=== PATIENT | female | born 1985 ===

== ENCOUNTER 2022-05-23 04:08 | Inpatient (IN) ==
[2022-05-23] MEDS ORDERED: LIDOCAINE 1% LOCAL 20 ML VIAL INFIL PRN (04:34)
[2022-05-23] MEDS ORDERED: OXYTOCIN 30 UNITS/500 ML BAG IV PRN ×2 (04:34→13:35)
[2022-05-23] MEDS: LACTATED RINGER'S 1,000 ML IV PRN ×2 (04:45→09:03)
[2022-05-23 04:56] LABS: Hematocrit (blood only) 32.4 % (34.1-44.9); Hemoglobin 11.2 g/dl (12.0-16.0); Mean Corpuscular Hemoglobin 31.1 pg (25.0-34.0); Mean Corpuscular Hgb Conc 34.6 g/dL (32.0-36.0); Mean Platelet Volume 10.1 fL (9.4-12.3); Platelet Count 363 K/uL (130-400); RDW Coefficient of Variation 12.5 % (11.5-14.5); RDW Standard Deviation 41.2 fL (36.4-46.3); White Blood Count 12.72 K/ul (4.8-10.8)
[2022-05-23] MEDS ORDERED: fentaNYL citrate 100 MCG/2 ML VIAL ONE (05:04)
[2022-05-23] MEDS ORDERED: ePHEDrine sulfate 50 MG/ML AMP ONE (05:04)
[2022-05-23] MEDS ORDERED: SODIUM CHLORIDE 0.9% INJ 10 ML VIAL ONE (05:04)
[2022-05-23] MEDS ORDERED: LIDOCAINE 2%/EPINEPHRINE 1:200,000 20 ML SDV ONE (05:05)
[2022-05-23] MEDS ORDERED: fentaNYL 2MCG/ML ROPIVACAINE 1.25MG/ML 100 ML BAG EPI ONE (05:05)
[2022-05-23] MEDS ORDERED: BUPIVACAINE 0.25% 30 ML VIAL ONE (05:05)
--- NOTE | 2022-05-23 05:51 | Anesthesiology Consultation ---
Date of Service May 23, 2022 Assessment & Plan Chart Review Chart Review: Acceptable Risk for Labor Epidural Consults Requested none History Height/Weight Height: 5 ft 4 in Weight: 73.936 kg Allergies Allergy/AdvReac Type Severity Reaction Status Date / Time No Known Allergies Allergy Unverified 04/29/22 19:23 Medications Home Medications Medication Instructions Recorded Confirmed Last Taken cyanocobalamin (B12)-cobamamide harriet sublingual DAILY 04/29/22 05/22/22 13:00 5,000 mcg-100 mcg sublingual lozenge (B12) ferrous sulfate 325 mg (65 mg 325 mg PO DAILY 04/29/22 05/23/22 05/22/22 13:00 iron) tablet (iron) omeprazole magnesium 20 mg 20 mg PO DAILY 04/29/22 05/23/22 05/22/22 13:00 tablet,delayed release (Prilosec OTC) vit no.95-ferrous 1 tab PO DAILY 04/29/22 05/23/22 05/22/22 13:00 fumarate 28 mg-folic acid 800 mcg tablet () venlafaxine 75 mg tablet 75 mg PO DAILY 04/29/22 05/23/22 05/22/22 13:00 Active Medications Generic Name Dose Route Start Last Admin Trade Name Freq PRN Reason Stop Dose Admin Lactated Ringer's 1,000 mls @ 125 mls/hr 05/23/22 04:34 05/23/22 04:45 Lr IV 05/25/22 04:33 125 mls/hr .Q8H PRN Administration L&D Protocol Protocol Past Medical History Medical History Anxiety Depression Past Surgical History Surgical History Hx laparoscopic cholecystectomy Social History Smoking Status: Current every day smoker tobacco type: cigarettes Smoking cigarettes per day: 7-10 Hx Alcohol Use: No Hx Substance Use: No substance use type: does not use Physical Exam Vital Signs Last Vital Signs Temp 36.7 C 05/23/22 04:40 Pulse 83 05/23/22 05:50 Resp 18 05/23/22 05:34 BP 111/71 05/23/22 05:50 Pulse Ox 98 05/23/22 05:49 Testing Laboratory Results 05/23/22 04:49
[2022-05-23] MEDS ORDERED: NALOXONE HCL 1 MG in SODIUM CHLORIDE 0.9% 1000ML 1,000 ML IV PRN (05:53)
[2022-05-23] MEDS ORDERED: fentaNYL 2MCG/ML ROPIVACAINE 1.25MG/ML 100 ML BAG EPI PRN (05:53)
[2022-05-23] MEDS ORDERED: NALBUPHINE HCL INJ 10 MG/ML AMP IV PRN (05:53)
[2022-05-23] MEDS ORDERED: ePHEDrine sulfate 50 MG/ML AMP IV PRN (05:53)
[2022-05-23] MEDS ORDERED: diphenhydrAMINE 50 MG/ML VIAL IV PRN (05:53)
[2022-05-23] MEDS ORDERED: NALOXONE HCL 0.4 MG/1 ML VIAL/CARP IV PRN (05:53)
--- NOTE | 2022-05-23 07:48 | History & Physical Report ---
Date of Service May 23, 2022 Assessment & Plan (1) Active labor at term: Plan: 37-year-old -1-0-3 at 38 weeks of gestation presenting today with contractions, in active labor, Vital signs stable afebrile, GBS negative, heart rate categ 1, Continue to monitor, anticipate . Admission and Anticipated Discharge Date Admission Date: May 23, 2022 History of Present Illness Primary Care Provider: Ehsan Beck MD Patient is a 37-year-old -0-1-3 at 38 weeks of gestation who presented to labor and delivery in active labor with contractions started around 2 a.m. and got closer and regular. No leakage of fluid or vaginal bleeding. She reports good movements. She asked for epidural for pain and received and comfortable now. Her has been completed by, 1. AMA, QNatal testing negative, low risk 2. Tobacco use during , 3. History of delivery, 4. Chlamydia infection at first trimester, treated and test of cure negative x2, 5. General anxiety disorder, on Effexor Allergies Allergy/AdvReac Type Severity Reaction Status Date / Time No Known Allergies Allergy Unverified 04/29/22 19:23 Home Medications Medication Instructions Recorded Confirmed Type cyanocobalamin (B12)-cobamamide harriet sublingual DAILY 04/29/22 History 5,000 mcg-100 mcg sublingual lozenge (B12) ferrous sulfate 325 mg (65 mg 325 mg PO DAILY 04/29/22 05/23/22 History iron) tablet (iron) omeprazole magnesium 20 mg 20 mg PO DAILY 04/29/22 05/23/22 History tablet,delayed release (Prilosec OTC) vit no.95-ferrous 1 tab PO DAILY 04/29/22 05/23/22 History fumarate 28 mg-folic acid 800 mcg tablet () venlafaxine 75 mg tablet 75 mg PO DAILY 04/29/22 05/23/22 History Patient History Medical History (Updated 05/23/22 @ 07:46 by Cesario Ahuja MD) Anxiety Depression Surgical History Hx laparoscopic cholecystectomy Social History Smoking Status: Current every day smoker Cigarettes Per Day: 7-10; Second Hand Exposure: Yes; Hx Alcohol Use: No Hx Substance Use: No Preferred Language: Kittitian Communication Ability: Effective Magnetic Locater Required: No Beliefs That Will Affect Care: None marital status: Single marital status details: KANA Devine Current Living Situation: Spouse and Family Current Living Situation Comment: KANA Smith and 3 kids. current occupational status: employed current occupation: [employer] Other Information That Helps Us Care for You: No Feels Safe at Home: Yes Safety Concerns: Feels Safe At This Time Do you think of yourself as: straight/heterosexual Gender Identity: Female Assistive Devices: None [employer] History No history of genital herpes, gonorrhea. Review of Systems as per Subjective / HPI Physical Exam Constitutional: WD/WN, vitals as above well developed and well nourished Genitourinary: normal external appearance OB Exam Abdomen: + vertex Manual OB Exam: + cervical dilation 7 cm, + cervical effacement 70% and + station -2 OB Exam Monitor Tracing: + external uterine monitor used and + category I Results & Data ([facility]) Vital Signs (Past 12 Hours) Vital Signs Temp Pulse Resp BP Pulse Ox 05/23/22 04:40 36.7 C 18 05/23/22 07:39 71 100 05/23/22 07:34 69 100 05/23/22 07:29 67 100 05/23/22 07:27 69 112/72 05/23/22 07:24 70 100 05/23/22 07:19 68 100 05/23/22 07:14 74 100 05/23/22 07:11 64 96/56 L 05/23/22 07:09 70 99 05/23/22 07:04 65 99 05/23/22 06:59 69 99 05/23/22 06:56 71 109/65 05/23/22 06:54 65 98 05/23/22 06:49 76 99 05/23/22 06:44 69 99 05/23/22 06:30 18 05/23/22 06:30 18 05/23/22 06:41 69 108/51 L 05/23/22 06:39 69 98 05/23/22 06:34 72 98 05/23/22 06:29 76 100 05/23/22 06:26 72 113/65 05/23/22 06:24 68 104/59 L 100 05/23/22 06:22 72 115/68 05/23/22 06:20 71 117/68 05/23/22 06:19 81 100 05/23/22 06:18 85 115/71 05/23/22 06:16 73 115/71 05/23/22 06:14 98 05/23/22 06:14 74 05/23/22 06:14 74 112/71 05/23/22 06:12 75 114/70 05/23/22 06:09 87 98 05/23/22 06:10 89 104/70 05/23/22 06:08 78 115/68 05/23/22 06:06 78 114/71 05/23/22 06:04 98 05/23/22 06:04 82 05/23/22 06:04 77 111/70 05/23/22 06:02 75 112/69 05/23/22 05:59 86 98 05/23/22 06:00 83 18 112/67 05/23/22 05:58 91 H 111/57 L 05/23/22 05:56 75 110/71 05/23/22 05:54 88 112/66 99 05/23/22 05:52 94 H 115/72 05/23/22 05:49 84 98 05/23/22 05:50 83 18 111/71 05/23/22 05:48 83 107/68 05/23/22 05:46 82 113/69 05/23/22 05:44 103 H 105/65 98 05/23/22 05:42 80 109/70 05/23/22 05:39 87 96 05/23/22 05:40 83 109/69 05/23/22 05:38 81 108/69 05/23/22 05:36 80 107/65 05/23/22 05:34 81 18 122/69 96 05/23/22 05:31 92 H 92 05/23/22 05:29 101 H 99 05/23/22 05:24 85 99 05/23/22 05:19 87 97 05/23/22 05:14 78 95 05/23/22 05:09 83 96 05/23/22 05:04 83 97 05/23/22 04:59 81 97 05/23/22 04:25 84 122/80 Laboratory Results Lab Results 05/23/22 05/23/22 Range/Units 04:38 04:49 WBC 12.72 H (4.8-10.8) K/ul RBC 3.60 L (3.93-5.22) M/uL Hgb 11.2 L (12.0-16.0) g/dl Hct 32.4 L (34.1-44.9) % MCV 90.0 (80.0-100.0) fL MCH 31.1 (25.0-34.0) pg MCHC 34.6 (32.0-36.0) g/dL RDW Std Deviation 41.2 (36.4-46.3) fL RDW Coeff of Marilee 12.5 (11.5-14.5) % Plt Count 363 (130-400) K/uL MPV 10.1 (9.4-12.3) fL SARS-CoV-2, RNA, NAAT NEGATIVE (NEGATIVE)
--- NOTE | 2022-05-23 09:51 | Delivery Summary ---
Vaginal Delivery Summary Date of Service May 23, 2022 Vaginal Delivery Summary pt fully dilated and pushing, placed the pt in dorsal lithotomy position, prepped and draped in usual fashion, pushed for few minutes, delivered alive viable female infant in LILIAN position, nuchal cord x 1 , reduced, placed the infant on the mothers abdomen, bulb suctioned nose and mouth, cord clamped and cut by the FOB. Placenta delivered spontaneously and complete. thick meconium noted. no lacerations noted. Apgars: 7, 9 EBL: 200 cc
--- NOTE | 2022-05-23 11:21 | Anesthesiology Progress Note ---
Date of Service May 23, 2022 Assessment & Plan Admission and Anticipated Discharge Date Admission Date: May 23, 2022 Subjective Catheter removed without complications. Tip intact. Physical Exam Vital Signs: Last Vital Signs Temp 36.8 C 05/23/22 07:14 Pulse 79 05/23/22 11:14 Resp 18 05/23/22 06:30 BP 122/66 05/23/22 11:11 Pulse Ox 97 05/23/22 11:14 Results & Data ([facility]) Medications Administered Oxytocin (Pitocin) 30 units in 500 mls @ 333.333 mls/hr IV .Q1H30M PRN; Protocol PRN Reason: Bleeding Control Stop: 06/22/22 04:33 Last Admin: 05/23/22 09:30 Dose: 59.94 units/hr, 999 mls/hr Documented By: ADRIANE Co-signed By: BLANCHE Lactated Ringer's (Lr) 1,000 mls @ 125 mls/hr IV .Q8H PRN; Protocol PRN Reason: L&D Protocol Stop: 05/25/22 04:33 Last Infusion: 05/23/22 09:30 Dose: 0 mls/hr Documented By: Admin: 05/23/22 09:03 Dose: 125 mls/hr Documented By: Infusion: 05/23/22 09:03 Dose: 125 mls/hr Documented By: Admin: 05/23/22 04:45 Dose: 125 mls/hr Documented By: KARLEY
[2022-05-23] MEDS ORDERED: HYDROCORTISONE ACETATE 25 MG SUPP PR PRN (13:35)
[2022-05-23] MEDS ORDERED: ACETAMINOPHEN 325 MG TAB PO PRN (13:35)
[2022-05-23] MEDS ORDERED: BENZOCAINE 20% AER SPR 82.5 GM CAN EXT PRN (13:35)
[2022-05-23] MEDS ORDERED: bisacodyL 10 MG SUPP PR PRN (13:35)
[2022-05-23] MEDS ORDERED: DIPHTHERIA/TETANUS/PERTUSSIS 0.5 ML SYR/VIAL IM ONE (13:35)
[2022-05-23] MEDS: IBUPROFEN 600 MG TAB PO PRN ×2 (14:04→20:14)
[2022-05-23] MEDS: DOCUSATE SODIUM 100 MG CAP PO SCH (20:14)
[2022-05-24 06:15] LABS: Hematocrit (blood only) 33.1 % (34.1-44.9); Hemoglobin 11.1 g/dl (12.0-16.0); Mean Corpuscular Hemoglobin 30.6 pg (25.0-34.0); Mean Corpuscular Hgb Conc 33.5 g/dL (32.0-36.0); Mean Corpuscular Volume 91.2 fL (80.0-100.0); Mean Platelet Volume 10.4 fL (9.4-12.3); Platelet Count 385 K/uL (130-400); RDW Coefficient of Variation 12.7 % (11.5-14.5); RDW Standard Deviation 42.4 fL (36.4-46.3); Red Blood Count 3.63 M/uL (3.93-5.22); White Blood Count 11.18 K/ul (4.8-10.8)
[2022-05-24] MEDS ORDERED: PRENATAL VITAMIN 1 TAB PO SCH (08:00)
[2022-05-24] MEDS: DOCUSATE SODIUM 100 MG CAP PO SCH (08:08)
[2022-05-24] MEDS: IBUPROFEN 600 MG TAB PO PRN (08:08)
[2022-05-24] MEDS ORDERED: VENLAFAXINE HCL XR 150 MG CAPXR PO SCH (09:00)
--- NOTE | 2022-05-24 09:38 | Obstetrical Progress Note ---
Date of Service May 24, 2022 Assessment & Plan (1) Anxiety: Present on Admission?: Yes (2) Active labor at term: Present on Admission?: Yes (3) Vaginal bleeding in : Present on Admission?: No Plan s/p #1 Pt clinically and hemodynamically stable to be discharged Follow up in the office in 3 weeks and 6 weeks for visit continue Feso4 nd pnv Admission and Anticipated Discharge Date Admission Date: May 23, 2022 Anticipated date of discharge: 05/24/22 Subjective pt doing well. Denies ay issues like heavy vaginal bleeding, vaginal pain, shortness of breadth, palpitations, dizziness etc. Normal lochia. breast feeding the baby. Results & Data ([facility]) Vital Signs (Past 12 Hours) Vital Signs Temp Pulse Resp BP Pulse Ox O2 Del Method 05/24/22 08:00 37 C 62 18 122/82 99 Room Air 05/24/22 04:30 36.6 C 79 18 116/75 05/24/22 00:30 36.5 C 75 18 119/74
--- NOTE | 2022-05-24 09:45 | Discharge Summary ---
Date of Service May 24, 2022 Admission HPI Per Admitting Provider Patient is a 37-year-old -0-1-3 at 38 weeks of gestation who presented to labor and delivery in active labor with contractions started around 2 a.m. and got closer and regular. No leakage of fluid or vaginal bleeding. She reports good movements. She asked for epidural for pain and received and comfortable now. Her has been completed by, 1. AMA, QNatal testing negative, low risk 2. Tobacco use during , 3. History of delivery, 4. Chlamydia infection at first trimester, treated and test of cure negative x2, 5. General anxiety disorder, on Effexor Discharge Data Consultations 05/23/22 04:34 Consult Anesthesiology Stat Procedures Performed S/P Discharge Instructions FOLLOW UP IN THE OFFICE IN 3 WEEKS AND 6 WEEKS FOR VISIT Continue PNV and Feso4
[2022-05-24] MEDS ORDERED: bisacodyL 5 MG TABEC PO SCH (20:00)
== END 2022-05-24 13:19 | disposition home or self-care (01) | DRG 807 ==
LOC: OPB 04:08 → 4S1 04:12 → 4E2 11:56